=== PATIENT | female | born 1945 | race Caucasian/White ===

== ENCOUNTER 2017-06-09 10:32 | Observation (INO) ==
--- NOTE | 2017-06-09 10:35 | Emergency Department Note ---
ED Disposition Clinical Impression: COPD exacerbation Community acquired pneumonia Qualifiers: Laterality: left Lung location: lower lobe of lung Qualified Code(s): J18.1 - Lobar pneumonia, unspecified organism Disposition: Still a Patient Condition on Discharge: Fair - Critical Care Critical Care Time: No Attestation: On , the high probability of a clinically significant, sudden or life threatening deterioration of the following system(s) required my full and direct attention, intervention and personal management. The time I documented below is in addition to time spent performing reported procedures but includes the following listed in this critical care notation. Medical Decision Making - Luis Inquiry Pt receiving controlled substance: No Vital Signs: 06/09/17 10:33 06/09/17 10:47 Temperature Source Oral Pulse Rate 89 Pulse Rate [Right Brachial] 75 Respiratory Rate 18 Blood Pressure [Right Arm] 123/75 Blood Pressure Mean [Right Arm] 91 02 Sat by Pulse Oximetry 94 L Oxygen Delivery Method Room Air - Lab Data Lab Results 06/09/17 10:40: Specimen Source Left radial, O2 % 28, ABG pH 7.39, ABG pCO2 49.2 H, ABG pO2 76.6 L, ABG HCO3 29.0 H, ABG Total CO2 30.5 H, ABG O2 Saturation 95, ABG Base Excess 4.0 H, Travis Test Acceptable 06/09/17 10:47: WBC 14.0 H, RBC 3.78 L, Hgb 9.9 L, Hct 33.2 L, MCV 87.7, MCH 26.0 L, MCHC 29.7 L, RDW 16.3, Plt Count 335, MPV 7.8, Neut % (Auto) 74.1, Lymph % (Auto) 18.1, [place] % (Auto) 5.8, Eos % (Auto) 1.6, Baso % (Auto) 0.3, Neut # (Auto) 10.4 H, Lymph # (Auto) 2.5, [place] # (Auto) 0.8, Eos # (Auto) 0.2, Baso # (Auto) 0.0 06/09/17 10:47: Sodium 140, Potassium 3.5, Chloride 101, Carbon Dioxide 31, Anion Gap 11.5, BUN 13, Creatinine 0.93, Estimated Creat Clear 61, Estimated GFR 59, Est GFR ( Amer) 72, Glucose 140 H, Calcium 9.4, Total Bilirubin 0.2, AST 11 L, ALT 15, Alkaline Phosphatase 109, Total Creatine Kinase 23 L, CK- MB (CK-2) 0.7, CK-MB (CK-2) Rel Index 3.0, Troponin I < 0.02, Total Protein 6.6 , Albumin 2.3 L, Globulin 4.3 H, Albumin/Globulin Ratio 0.5 L 06/09/17 10:47: Lactic Acid 2.9 H Result diagrams: 06/09/17 10:47 06/09/17 10:47 Orders (Tests/Meds): ED MEDICATIONS Generic Name Dose Route Start Last Admin Trade Name Freq PRN Reason Stop Dose Admin Azithromycin 500 mg/ Sodium 250 mls @ 250 mls/hr 06/09/17 11:15 Chloride IV 06/23/17 11:14 Q24H AURE Protocol Ceftriaxone Sodium 1 gm/ 50 mls @ 100 mls/hr 06/09/17 11:15 06/09/17 11:49 Sodium Chloride IV 06/23/17 11:14 100 mls/hr Q24H AURE Administration Protocol Discontinued Medications Generic Name Dose Route Start Last Admin Trade Name Freq PRN Reason Stop Dose Admin Albuterol/Ipratropium 3 ml 06/09/17 10:45 06/09/17 10:46 Duoneb 3ml [facility] 06/09/17 10:46 3 ml ONCE ONE Administration Methylprednisolone Sodium Succinate 125 mg 06/09/17 10:43 06/09/17 11:05 Solu-Medrol 125mg/2ml Vial IV 06/09/17 10:44 125 mg ONCE ONE Administration Sodium Chloride 3 ml 06/09/17 10:45 Sodium Choride 3ml [facility] 06/09/17 10:46 ONCE ONE ORDERS Category Date Time Status Chest XR -- portable [XR chest portable] Stat Exams 06/09/17 10:45 Taken Lactic Acid Follow Up (4 hr) Stat Lab 06/09/17 11:29 Ordered Blood Culture Stat Micro 06/09/17 10:47 Received Sputum Culture & Gram Stain Stat Micro 06/09/17 10:45 Received - Radiology Data #1 Image(s): Chest Image Reviewed: Yes I reviewed the patient's radiology image Left basilar airspace disease - ECG Data Tracing #1 EKG interpreted by Veto Blood MD: Rhythm: sinus Rate: 90 [place]: normal Ectopy: none Conduction: normal ST Segment Changes: none T Wave Changes: none Q Waves: none No evidence of acute ischemia or injury Medical Decision Narrative: Patient lists allergy to penicillin. Reviewed previous records, she has been treated with Rocephin in the past. General Adult HPI - General Chief complaint: Shortness of Breath/Dyspnea Stated complaint: SHORTNESS OF AIR Time Seen by Provider: 06/09/17 11:00 - History of Present Illness HPI narrative: Ill for about 3 days. Has a bad cough producing dominantly very yellow sputum, one episode of brown sputum. No documented fever. Short of breath and increased wheezing. Rhinorrhea and nasal congestion. Very bad sore throat. Denies earache, but states "always has fluid in ears". Has severe COPD. On oxygen 2 L nasal cannula at home. Nebulizer treatments at home. Lives in [place] and was [place], here visiting family. Former smoker. - Related Data Allergies Allergy/AdvReac Type Severity Reaction Status Date / Time penicillin G Allergy Severe S-DIFF. Verified 06/09/17 10:42 BREATHING ciprofloxacin [From Cipro] Allergy Unknown UNKNOWN Verified 06/09/17 10:42 esomeprazole [From Nexium] Allergy Unknown UNKNOWN Verified 06/09/17 10:42 montelukast Allergy Unknown UNKNOWN Verified 06/09/17 10:42 oseltamivir Allergy Unknown Verified 06/09/17 10:42 Sulfa (Sulfonamide Allergy Unknown Verified 06/09/17 10:42 Antibiotics) ADHESIVES Allergy Unknown I-RASH Uncoded 02/05/17 15:14 [facility] History I have reviewed the patient's past medical history: Yes ROS Obtained: Yes All systems reviewed & no additional complaints - Constitutional Constitutional: Denies fever(s) - ENT Ears, Nose, Mouth, and Throat: Reports nasal congestion, Reports nasal discharge , Reports sore throat - Cardiovascular Cardiovascular: Reports chest pain (With breathing and coughing, posterior) - Respiratory Respiratory: Yes cough, Yes dyspnea, Yes excessive phlegm production, Yes pain on inspiration, Yes pain with cough, Yes wheezing - Gastrointestinal Gastrointestingal: Denies: diarrhea, vomiting Physical Exam - General General appearance: alert Comment: Very frequent cough, productive - Head Head exam: atraumatic, normocephalic, normal inspection - Eye Eye exam: Present: normal appearance, PERRL, EOMI - ENT ENT exam: Present: normal exam, mucous membranes moist, TM's normal bilaterally , normal external ear exam, other (mild erythema of pharynx) - Neck Neck exam: Present: normal inspection, full ROM, trachea midline. Absent: meningismus, lymphadenopathy - Chest Chest inspection: Present: normal inspection, symmetric chest wall rise. Absent : tenderness - Respiratory Respiratory exam: Present: wheezes - Cardiovascular Cardiovascular exam: Present: regular rate, normal rhythm. Absent: JVD - Abdominal Exam Abdominal exam: Present: soft, normal bowel sounds. Absent: distention, tenderness, guarding - Extremities Exam Extremities exam: Present: normal inspection, full ROM, normal capillary refill. Absent: calf tenderness - Back Exam Back exam: Present: normal inspection - Neurological Exam Neurological exam: Present: alert, oriented X3 - Psychiatric Psychiatric exam: Present: normal affect, normal mood - Skin Skin exam: Present: warm, dry, intact, normal color
[2017-06-09 10:42] LABS: ABG Oxygen Saturation 95 % (90-100); ABG PCO2 49.2 mmhg (35.0-45.0); ABG PH 7.39 mmol/L (7.35-7.45); ABG PO2 76.6 mmhg (80-100); ABG TCO2 30.5 mmhg (23-27)
[2017-06-09 10:43] LABS: Allen's Test ACCEPTABLE; Oxygen 28 %
[2017-06-09 11:11] LABS: Basophils % 0.3 % (0.1-2.0); Eosinophils # 0.2 K/mm3 (0.0-0.4); Eosinophils % 1.6 % (0.1-12.0); Hematocrit 33.2 % (37.0-47.0); Hemoglobin 9.9 g/dL (12.2-16.2); Lymphocytes # 2.5 K/mm3 (0.7-4.5); Lymphocytes % 18.1 K/mm3 (10-50); Mean Corpuscular HGB Conc 29.7 g/dL (31.8-35.4); Mean Corpuscular Volume 87.7 fl (81-99); Mean Platelet Volume 7.8 fl (7.4-10.4); Monocytes # 0.8 K/mm3 (0.1-1.0); Monocytes % 5.8 % (1.7-9.3); Neutrophils # 10.4 K/mm3 (1.8-7.8); Neutrophils % 74.1 % (37.0-80.0); Platelet Count 335 K/mm3 (142-424); Red Blood Count 3.78 M/mm3 (4.20-5.40); Red Cell Distribution Width 16.3 % (11.5-17.5)
[2017-06-09 11:45] LABS: Alanine Aminotransferase 15 U/L (12-78); Albumin Level 2.3 gm/dL (3.4-5.0); Albumin/Globulin Ratio 0.5 (1.1-1.8); Alkaline Phosphatase 109 U/L (46-116); Anion Gap 11.5 mEq/L (5-15); Aspartate Amino Transferase 11 U/L (15-37); Bilirubin,Total 0.2 mg/dL (0.2-1.0); Blood Urea Nitrogen 13 mg/dL (7-18); Calcium 9.4 mg/dL (8.5-10.1); Carbon Dioxide 31 mmol/L (21.0-32.0); Chloride 101 mmol/L (98-107); Creatine Kinase 23 U/L (26-192); Globulin 4.3 gm/dl (1.3-3.2); Glucose 140 mg/dL (74-106); Potassium 3.5 mmoL/L (3.5-5.1); Sodium 140 mmol/L (136-145); Total Protein,Serum 6.6 gm/dL (6.4-8.2)
--- NOTE | 2017-06-10 07:36 | Pharmacy Consult Notes ---
[facility] Pharmacy VTE Monitoring - Patient Demographics Admission date: 06/09/17 Report Date: 06/10/17 Time: 07:36 Allergies/Adverse Reactions: Patient Allergies penicillin G Allergy (Severe, Verified 06/09/17 10:42) S-DIFF. BREATHING ciprofloxacin [From Cipro] Allergy (Unknown, Verified 06/09/17 10:42) UNKNOWN esomeprazole [From Nexium] Allergy (Unknown, Verified 06/09/17 10:42) UNKNOWN montelukast Allergy (Unknown, Verified 06/09/17 10:42) UNKNOWN oseltamivir Allergy (Unknown, Verified 06/09/17 10:42) Sulfa (Sulfonamide Antibiotics) Allergy (Unknown, Verified 06/09/17 10:42) ADHESIVES Allergy (Unknown, Uncoded 02/05/17 15:14) I-RASH Height: 1.57 m Weight: 78.075 kg Patient Problems: Current Active Problems Community acquired pneumonia (Acute) COPD exacerbation (Acute) - VTE Risk Labs: VTE Related Lab Results Hgb 9.9 g/dL (12.2-16.2) L 06/09/17 10:47 Hct 33.2 % (37.0-47.0) L 06/09/17 10:47 Plt Count 335 K/mm3 (142-424) 06/09/17 10:47 BUN 13 mg/dL (7-18) 06/09/17 10:47 Creatinine 0.93 mg/dL (0.55-1.02) 06/09/17 10:47 Estimated Creat Clear 61 mL/min (0-300) 06/09/17 10:47 Was VTE Risk Assessment Performed: Yes VTE Risk Level: Low Risk - Prophylaxis VTE Prophylaxis Ordered?: Yes Types of VTE Prophylaxis: TEDS Knee High Location of Applied Device: Bilateral Lower Extremeties - VTE Diagnosis Confirmed Treatment or plan recommended: Continue Current Treatment
--- NOTE | 2017-06-10 08:22 | History & Physical Report ---
*Admission Date: 06/09/17 *Chief complaint: Cough and congestion *History of present illness: 72-year-old white female with end-stage emphysema as well as multiple other medical problems from cigarette smoking who has been in town with the sudden of her son. She became progressively more short of air and dyspneic, came to the emergency department yesterday. Chest x-ray findings were nonacute but had significant problems with dyspnea and evidence of a COPD exacerbation and was admitted to hospital. She states this morning that she feels somewhat better. Did have an episode yesterday of sweating and diaphoresis with some shortness of air but this has improved. [facility] History I have reviewed the patient's past medical history: Yes Medical History: Reports:: Arrhythmia, Diabetes Mellitus Type 2, Hypertension, MRSA Denies:: Cancer, Internal Pacemaker Other Medical History: Reports: Arthritis, Cataracts, Glaucoma, Radiation Therapy, Sinus Problems Other Surgeries: No: Pacemaker Amputation: No - *Social History Educational Level: Attended College Smoking Status: Former smoker Tobacco Type: cigarettes Alcohol Intake: never Occupational Status: retired Housing: house Household Members: children - Psychiatric History Expresses thoughts of harming self/others: None Suicide Plan Description: No Plan Review of Systems - Review of Systems Review of systems:: pertinent systems reviewed and negative unless documented below - Constitutional Reports anorexia, Reports body ache(s), Reports weakness - *Cardiovascular Reports shortness of breath, Reports shortness of breath with activity - *Respiratory Reports change in phlegm color, Reports chest congestion - *Gastrointestinal Reports abdominal pain - *Musculoskeletal Reports abnormal walking, Reports joint pain, Reports decreased muscle mass, Reports limited joint movement Meds Home Medications Medication Instructions Recorded Confirmed Type Apixaban [Eliquis] 5 mg PO BID 06/09/17 06/09/17 History Calcitonin,[place],Synthetic 3.7 ml NS HS 06/09/17 06/09/17 History [Miacalcin] Calcium Citrate/Vitamin D2 1 each PO BID 06/09/17 06/09/17 History [Alfie-Citrate Plus Vitamin D Tab] Docusate Sodium 100 mg PO BID 06/09/17 06/09/17 History Flecainide Acetate 100 mg PO Q12 06/09/17 06/09/17 History Fluticasone Propionate [Flonase 1 spray NS DAILY 06/09/17 06/09/17 History Allergy Relief NS] Fluticasone/Salmeterol [Advair 0 each INHALATION DAILY 06/09/17 06/09/17 History 500/50mcg diskus] Furosemide [Lasix 20mg tab] 20 mg PO DAILY 06/09/17 06/09/17 History Gabapentin [Gabapentin 300mg Cap] 300 mg PO BID 06/09/17 06/09/17 History Loratadine [Claritin] 10 mg PO DAILY 06/09/17 06/09/17 History Melatonin 5 mg PO HS 06/09/17 06/09/17 History Oxycodone HCl/Acetaminophen 1 tab PO Q4-6H PRN 06/09/17 06/09/17 History [Percocet 5/325mg tablet] Tiotropium [place] [Spiriva 1 puff IH DAILY 06/09/17 06/09/17 History 18mcg/puff inhaler] Tizanidine HCl [Zanaflex] 4 mg PO Q8HP PRN 06/09/17 06/09/17 History dilTIAZem HCl [Cartia Xt] 300 mg PO DAILY 06/09/17 06/09/17 History guaiFENesin [Mucinex 600mg tablet] 600 mg PO Q12 PRN 06/09/17 06/09/17 History predniSONE [Prednisone 10mg Tab 10 mg PO DAILY 06/09/17 06/09/17 History Dose-Pack] predniSONE [Prednisone 20mg 20 mg PO DAILY 06/09/17 06/09/17 History Tab] raNITIdine HCl [Ranitidine HCl] 75 mg PO BID 06/09/17 06/09/17 History Allergies Allergy/AdvReac Type Severity Reaction Status Date / Time penicillin G Allergy Severe S-DIFF. Verified 06/09/17 10:42 BREATHING ciprofloxacin [From Cipro] Allergy Unknown UNKNOWN Verified 06/09/17 10:42 esomeprazole [From Nexium] Allergy Unknown UNKNOWN Verified 06/09/17 10:42 montelukast Allergy Unknown UNKNOWN Verified 06/09/17 10:42 oseltamivir Allergy Unknown Verified 06/09/17 10:42 Sulfa (Sulfonamide Allergy Unknown Verified 06/09/17 10:42 Antibiotics) ADHESIVES Allergy Unknown I-RASH Uncoded 02/05/17 15:14 Exam Vital signs and Labs for Last 24 Hours: Temp Pulse Resp BP Pulse Ox 98.6 F 95 H 20 132/72 94 L 06/10/17 07:50 06/10/17 07:50 06/10/17 07:50 06/10/17 07:50 06/10/17 07:50 Laboratory Results - last 24 hr 06/09/17 10:40: Specimen Source Left radial, O2 % 28, ABG pH 7.39, ABG pCO2 49.2 H, ABG pO2 76.6 L, ABG HCO3 29.0 H, ABG Total CO2 30.5 H, ABG O2 Saturation 95, ABG Base Excess 4.0 H, Travis Test Acceptable 06/09/17 10:47: WBC 14.0 H, RBC 3.78 L, Hgb 9.9 L, Hct 33.2 L, MCV 87.7, MCH 26.0 L, MCHC 29.7 L, RDW 16.3, Plt Count 335, MPV 7.8, Neut % (Auto) 74.1, Lymph % (Auto) 18.1, [place] % (Auto) 5.8, Eos % (Auto) 1.6, Baso % (Auto) 0.3, Neut # (Auto) 10.4 H, Lymph # (Auto) 2.5, [place] # (Auto) 0.8, Eos # (Auto) 0.2, Baso # (Auto) 0.0 06/09/17 10:47: Sodium 140, Potassium 3.5, Chloride 101, Carbon Dioxide 31, Anion Gap 11.5, BUN 13, Creatinine 0.93, Estimated Creat Clear 61, Estimated GFR 59, Est GFR ( Amer) 72, Glucose 140 H, Calcium 9.4, Total Bilirubin 0.2, AST 11 L, ALT 15, Alkaline Phosphatase 109, Total Creatine Kinase 23 L, CK- MB (CK-2) 0.7, CK-MB (CK-2) Rel Index 3.0, Troponin I < 0.02, Total Protein 6.6 , Albumin 2.3 L, Globulin 4.3 H, Albumin/Globulin Ratio 0.5 L 06/09/17 10:47: Lactic Acid 2.9 H 06/09/17 16:39: POC Glucose 343 H* 06/09/17 21:08: POC Glucose 218 H 06/10/17 06:04: POC Glucose 224 H I & O for Last 24 hours: Intake & Output 06/07/17 06/08/17 06/09/17 06/10/17 11:59 11:59 11:59 11:59 Intake Total 1110 / 1110 Output Total 100 / 100 Balance 1010 / 1010 Weight 165 lb 172 lb 2 oz Microbiology Reports for the Last 24 Hours: Microbiology 06/09/17 10:45 Sputum - Expectorated Sputum Gram Stain - Final 06/09/17 10:45 Sputum - Expectorated Sputum Sputum Culture - Preliminary Narrative: Patient is awake, alert, oriented 3. Wearing oxygen, poor air movement in her lungs but at baseline. Some rhonchi. No crackles. No wheezing. Heart rate regular. Kyphosis and significant joint disease noted. Heart rate regular with occasional ectopic beats. Abdomen soft and nontender. H&P: Result - Labs Labs: Short CBC 06/09/17 Range/Units 10:47 WBC 14.0 H (4.8-10.8) K/mm3 Hgb 9.9 L (12.2-16.2) g/dL Hct 33.2 L (37.0-47.0) % Plt Count 335 (142-424) K/mm3 BMP 06/09/17 10:47 Sodium 140 Potassium 3.5 Chloride 101 Carbon Dioxide 31 BUN 13 Creatinine 0.93 Glucose 140 H Calcium 9.4 Cardiac Enzymes 06/09/17 Range/Units 10:47 Total Creatine Kinase 23 L (26-192) U/L CK-MB (CK-2) 0.7 (0.0-3.6) ng/ml Troponin I < 0.02 (0.00-0.06) ng/ml Liver Function 06/09/17 Range/Units 10:47 Total Bilirubin 0.2 (0.2-1.0) mg/dL AST 11 L (15-37) U/L ALT 15 (12-78) U/L Alkaline Phosphatase 109 (46-116) U/L Albumin 2.3 L (3.4-5.0) gm/dL Assessment and Plan (1) COPD exacerbation Current visit: Yes Status: Acute Category: Medical Code(s): J44.1 - Chronic obstructive pulmonary disease with (acute) exacerbation (2) Community acquired pneumonia Current visit: Yes Status: Acute Qualifiers: Laterality: left Lung location: lower lobe of lung Qualified Code(s): J18.1 - Lobar pneumonia, unspecified organism Category: Medical Code(s): J18.9 - Pneumonia, unspecified organism - Assessment and plan all Dx Assessment and Plan for all problems:: Continue observation for COPD exacerbation. Continue antibiotics and steroids. Check EKG given her history of A. fib.
[2017-06-10 12:45] LABS: Creatine Kinase 28 U/L (26-192)
--- NOTE | 2017-06-11 09:18 | Progress Note ---
Internal Medicine - PN: Subj *Date: 06/11/17 *Time: 07:30 Interval history: Patient reports back pain which is a chronic issue for her. Shortness of breath has improved "a little." Alert and oriented x3. Rate and rhythm regular. Lung sounds with rhonchi/ wheezes anteriorly. Abdomen soft and nontender Exam Vital signs and Labs for Last 24 Hours: Temp Pulse Resp BP Pulse Ox 98.2 F 93 H 20 177/71 93 L 06/11/17 07:17 06/11/17 07:17 06/11/17 07:17 06/11/17 07:17 06/11/17 07:17 Laboratory Results - last 24 hr 06/10/17 11:55: POC Glucose 352 H* 06/10/17 12:06: Total Creatine Kinase 28, CK-MB (CK-2) 0.7, CK-MB (CK-2) Rel Index 2.5, Troponin I < 0.02 06/10/17 16:55: POC Glucose 227 H 06/10/17 20:33: POC Glucose 232 H 06/11/17 06:25: POC Glucose 227 H I & O for Last 24 hours: Intake & Output 06/08/17 06/09/17 06/10/17 06/11/17 11:59 11:59 11:59 11:59 Intake Total 1110 / 1110 1280 / 1280 Output Total 100 / 100 200 / 200 Balance 1010 / 1010 1080 / 1080 Weight 165 lb 172 lb 2 oz 172 lb 2.014 oz Microbiology Reports for the Last 24 Hours: Microbiology 06/09/17 10:45 Sputum - Expectorated Sputum Gram Stain - Final 06/09/17 10:45 Sputum - Expectorated Sputum Sputum Culture - Preliminary 06/09/17 10:47 Blood Blood Culture - Preliminary NO GROWTH AFTER 24 HOURS 06/09/17 10:47 Blood Blood Culture - Preliminary NO GROWTH AFTER 24 HOURS Assessment and Plan (1) COPD exacerbation Current visit: Yes Status: Acute Category: Medical Code(s): J44.1 - Chronic obstructive pulmonary disease with (acute) exacerbation (2) Community acquired pneumonia Current visit: Yes Status: Acute Qualifiers: Laterality: left Lung location: lower lobe of lung Qualified Code(s): J18.1 - Lobar pneumonia, unspecified organism Category: Medical Code(s): J18.9 - Pneumonia, unspecified organism - Assessment and plan all Dx Assessment and Plan for all problems:: Continue IV antibiotics and Duonebs. Will schedule tylenol for back pain.
--- NOTE | 2017-06-12 08:07 | Discharge Summary ---
General - General Admission date:: 06/09/17 Discharge date: 06/12/17 HPI HPI: 72-year-old white female with end-stage emphysema as well as multiple other medical problems from cigarette smoking who has been in town with the sudden of her son. She became progressively more short of air and dyspneic, came to the emergency department yesterday. Chest x-ray findings were nonacute but had significant problems with dyspnea and evidence of a COPD exacerbation and was admitted to hospital. She states this morning that she feels somewhat better. Did have an episode yesterday of sweating and diaphoresis with some shortness of air but this has improved. Hospital Course Hospital Course: Patient was admitted with COPD exacerbation and placed on high IV steroids antibiotics. She was found to have no infiltrate over baseline on chest x-ray, had no issues with leukocytosis baseline, and had negative blood cultures and no growth on sputum culture. She was at her baseline throughout her hospital stay with wheezing, and significant subjective dyspnea. She complains of "stopping breathing" but this simply is vasovagal responses to her coughing. On examination she has a habit of making herself have audible rhonchi when she knows she has been examined and continues to complain of her lower functional status and "no one will take care of me" and ask for more days in the hospital. We had a long discussion today that she was at her baseline, she had a COPD exacerbation that had been adequately treated and for to stay in the hospital longer would actually be detrimental to her health. I will discharge her today on antibiotics and steroids. Her other issue is her wish for opioid pain medications. The patient has moved to [place] and is unavailable for appropriate narcotic monitoring I informed her today that I would no longer prescribe controlled substances for her and that she needed to find a physician in [place] to deal with this. Objective Vital signs: Temp Pulse Resp BP Pulse Ox 98.4 F 89 20 119/66 95 06/12/17 07:41 06/12/17 07:41 06/12/17 07:41 06/12/17 07:41 06/12/17 07:41 Narrative: Patient is frail-appearing and appears older than her stated age, at baseline. She is wearing oxygen, again at baseline. Her lungs have expiratory what rhonchi with minimal end-expiratory wheezes but she has symmetric air entry. She is in no distress, is able to finish sentences when talking, and has eaten well for breakfast. She is at her baseline. (Again, I informed her this did not mean that she was not sick but simply did not require ongoing hospitalization.) Results Labs on day of discharge: Labs from last 24 hours 06/12/17 06/11/17 06/11/17 06:05 20:15 16:49 POC Glucose 327 H* 260 H 301 H* 06/11/17 11:44 POC Glucose 284 H Preliminary micro results at discharge 06/09/17 10:45 Sputum Culture - Preliminary Sputum - Expectorated Sputum 06/09/17 10:47 Blood Culture - Preliminary Blood NO GROWTH AFTER 48 HOURS 06/09/17 10:47 Blood Culture - Preliminary Blood NO GROWTH AFTER 48 HOURS DS: Diagnosis - Discharge Diagnosis (1) COPD exacerbation Status: Acute (2) Community acquired pneumonia Status: Ruled-out Discharge Plan - Patient Discharge Instructions ACTIVITY: Continue current activity DIET: continue same diet - Follow up Plan Unknown provider or service follow up:: 06/12/17 08:08 New Physician in [place] Disposition: Home, Self-Prison Medications: Home Medications Medication Instructions Recorded Confirmed Type Apixaban [Eliquis] 5 mg PO BID 06/09/17 06/09/17 History Calcitonin,[place],Synthetic 3.7 ml NS HS 06/09/17 06/09/17 History [Miacalcin] Calcium Citrate/Vitamin D2 1 each PO BID 06/09/17 06/09/17 History [Alfie-Citrate Plus Vitamin D Tab] Docusate Sodium 100 mg PO BID 06/09/17 06/09/17 History Flecainide Acetate 100 mg PO Q12 06/09/17 06/09/17 History Fluticasone Propionate [Flonase 1 spray NS DAILY 06/09/17 06/09/17 History Allergy Relief NS] Furosemide [Lasix 20mg tab] 20 mg PO DAILY 06/09/17 06/09/17 History Gabapentin [Gabapentin 300mg Cap] 300 mg PO BID 06/09/17 06/09/17 History Loratadine [Claritin] 10 mg PO DAILY 06/09/17 06/09/17 History Melatonin 5 mg PO HS 06/09/17 06/10/17 History Oxycodone HCl/Acetaminophen 1 tab PO Q4-6H PRN 06/09/17 06/09/17 History [Percocet 5/325mg tablet] Tiotropium [place] [Spiriva 1 puff IH DAILY 06/09/17 06/09/17 History 18mcg/puff inhaler] Tizanidine HCl [Zanaflex] 4 mg PO Q8HP PRN 06/09/17 06/09/17 History dilTIAZem HCl [Cartia Xt] 300 mg PO DAILY 06/09/17 06/09/17 History guaiFENesin [Mucinex 600mg tablet] 600 mg PO Q12 PRN 06/09/17 06/09/17 History predniSONE [Prednisone 10mg Tab 10 mg PO DAILY 06/09/17 06/09/17 History Dose-Pack] predniSONE [Prednisone 20mg 20 mg PO DAILY 06/09/17 06/09/17 History Tab] raNITIdine HCl [Ranitidine HCl] 75 mg PO BID 06/09/17 06/09/17 History Fluticasone/Salmeterol [Advair 1 puffs IH DAILY 06/10/17 06/10/17 History 250/50 diskus] Tiotropium [place] [Spiriva 1 puff IH DAILY 06/10/17 06/10/17 History Respimat] Prescriptions/Medication Reconciliation: New Azithromycin [Zithromax 250mg tab] 250 mg PO DIRECTED #6 tab Cefdinir [Omnicef 300mg Capsule] 300 mg PO BID #20 cap predniSONE [Prednisone 20mg Tab] 20 mg PO BID #28 tab Continue Apixaban [Eliquis] 5 mg PO BID Fluticasone Propionate [Flonase Allergy Relief NS] 1 spray NS DAILY Docusate Sodium 100 mg PO BID Loratadine [Claritin] 10 mg PO DAILY Tizanidine HCl [Zanaflex] 4 mg PO Q8HP PRN PRN Reason: Muscle Pain Flecainide Acetate 100 mg PO Q12 dilTIAZem HCl [Cartia Xt] 300 mg PO DAILY Gabapentin [Gabapentin 300mg Cap] 300 mg PO BID Calcium Citrate/Vitamin D2 [Alfie-Citrate Plus Vitamin D Tab] 1 each PO BID Calcitonin,[place],Synthetic [Miacalcin] 3.7 ml NS HS Melatonin 5 mg PO HS guaiFENesin [Mucinex 600mg tablet] 600 mg PO Q12 PRN PRN Reason: Congestion Tiotropium [place] [Spiriva Respimat] 1 puff IH DAILY Furosemide [Lasix 20mg tab] 20 mg PO DAILY raNITIdine HCl [Ranitidine HCl] 75 mg PO BID Fluticasone/Salmeterol [Advair 250/50 diskus] 1 puffs IH DAILY Discontinued Tiotropium [place] [Spiriva 18mcg/puff inhaler] 1 puff IH DAILY predniSONE [Prednisone 20mg Tab] 20 mg PO DAILY predniSONE [Prednisone 10mg Tab Dose-Pack] 10 mg PO DAILY Oxycodone HCl/Acetaminophen [Percocet 5/325mg tablet] 1 tab PO Q4-6H PRN PRN Reason: PAIN
== END 2017-06-12 13:53 | disposition home or self-care (01) ==
LOC: 2ND 10:32 → ER 10:32 → 2ND 14:20
PROVIDERS: ADMIT Emergency Medicine; ATTEND Internal Medicine Adolescent Medicine

== ENCOUNTER 2018-10-29 17:33 | Observation (INO) ==
--- NOTE | 2018-10-29 18:33 | Emergency Department Note ---
ED Disposition Clinical Impression: COPD exacerbation Disposition: Admitted as Observation Condition on Discharge: Fair Referrals: [facility] Rg [Primary Care Provider] - - Critical Care Critical Care Time: No Attestation: On 10/29/18, the high probability of a clinically significant, sudden or life th reatening deterioration of the following system(s) required my full and direct attention, intervention and personal management. The time I documented below is in addition to time spent performing reported procedures but includes the following listed in this critical care notation. Medical Decision Making - Luis Inquiry Pt receiving controlled substance: No Vital Signs: 10/29/18 17:40 10/29/18 17:55 10/29/18 18:07 Temperature 98.0 F Temperature Source Oral Pulse Rate 97 H Pulse Rate [Right Radial] 90 Respiratory Rate 24 Blood Pressure [Right Arm] 132/78 Blood Pressure Mean [Right Arm] 96 Blood Pressure Source [Right Arm] Automatic Cuff Blood Pressure Position [Right Arm] Sitting 02 Sat by Pulse Oximetry 93 L 93 L Oxygen Delivery Method Nasal Cannula Nasal Cannula Oxygen Flow Rate (LPM) 2 2 - Lab Data Lab Results 10/29/18 18:55: WBC 11.5 H, RBC 3.84 L, Hgb 9.8 L, Hct 32.4 L, MCV 84.5, MCH 25.6 L, MCHC 30.3 L, RDW 16.9, Plt Count 276, MPV 7.2 L, Neut % (Auto) 78.5, Lymph % (Auto) 14.2, [place] % (Auto) 6.4, Eos % (Auto) 0.6, Baso % (Auto) 0.3, Neut # (Auto) 9.0 H, Lymph # (Auto) 1.6, [place] # (Auto) 0.7, Eos # (Auto) 0.1, [place] # (Auto) 0.0 10/29/18 18:55: Sodium 140, Potassium 4.0, Chloride 103, Carbon Dioxide 34 H, Anion Gap 7.0, BUN 15, Creatinine 0.89, Estimated Creat Clear 56, Estimated GFR 62, Est GFR ( Amer) 75, Glucose 137 H, Calcium 9.1, Total Bilirubin 0.3, AST 14 L, ALT 27, Alkaline Phosphatase 103, Troponin I < 0.02, Total Protein 6.3 L, Albumin 2.8 L, Globulin 3.5 H, Albumin/Globulin Ratio 0.8 L 10/29/18 18:55: Lactate 0.8 Result diagrams: 10/29/18 18:55 10/29/18 18:55 Orders (Tests/Meds): ED MEDICATIONS Discontinued Medications Generic Name Dose Route Start Last Admin Trade Name Sara PRN Reason Stop Dose Admin Acetaminophen 1,000 mg 10/29/18 19:24 10/29/18 19:25 Tylenol 500mg Tablet PO 10/29/18 19:25 1,000 mg ONCE ONE Administration Albuterol/Ipratropium 3 ml 10/29/18 17:55 10/29/18 18:06 Duoneb 3ml Neb IH 10/29/18 17:56 3 ml ONCE ONE Administration Methylprednisolone Sodium Succinate 125 mg 10/29/18 19:10 10/29/18 19:25 Solu-Medrol 125mg/2ml Vial IV 10/29/18 19:11 125 mg ONCE ONE Administration ORDERS Category Date Time Status XR chest portable Stat Exams 10/29/18 18:06 Taken Blood Culture Stat Micro 10/29/18 18:06 Received - Radiology Data #1 Image(s): Chest Image Reviewed: Yes I reviewed the patient's radiology image COPD. Questionable mild airspace disease left base, atelectasis vs minimal infiltrate. - ECG Data Tracing #1 EKG interpreted by Veto Blood MD: Rhythm: sinus Rate: 82 [place]: Left Ectopy: none Conduction: normal ST Segment Changes: none T Wave Changes: none Q Waves: none Poor R wave progression Low voltage QRS Baseline artifact present, but I consider the EKG adequate for accurate interpretation. - Physician Consults Physician Consulted: Marco Time: 19:53 Reason -: Admission Comment/Response: Agrees to admit the patient to the hospital. We discussed the patient's clinical information, including history, exam, laboratory and radiology results and ED course. Per hospital procedure, I will write temporary bridge inpatient orders on the patient. Specific orders requested by the admitting physician: Zithromax, nebulizers, steroids. Discussed with patient. She says she has been on Zithromax so much that it does not work. She prefers Levaquin, which she felt was working. Noted allergy to Cipro, but she says she can take Levaquin without problems. - Reevaluation(s) Time: 19:54 Reevaluation #1: Patient is significantly improved. Discussed and disposition. She has no ride and would have to drive back to [facility], where she lives, tonight by herself. She does not have any of her medications with her. Daughter says that she could come back with a shuttle driver in the morning to drive her home. Patient would prefer to stay overnight in the hospital for treatment and observation. General Adult HPI - General Chief complaint: Shortness of Breath/Dyspnea Stated complaint: SOB and AFif Time Seen by Provider: 10/29/18 18:32 Mode of Arrival: Wheelchair Limitations: No Limitations Description of Symptoms (Recalled from ER Triage Doc. by RN): pt c/o increased SOA, pt reports has been feeling bad all day, states she went grocery shopping and became more SOA than her normal, states when she checked her SaO2 it was 71% on 2L per NC. Pt reports she finished Levaquin 500 mg PO 10 day supply- 2 days ago. Pt reports productive cough. Pt reports GONZALEZ. Pt states she is home O2 dependent at 2L per NC - History of Present Illness HPI narrative: Complains of shortness of breath. She has severe COPD. Oxygen dependent. Steroid-dependent. She is visiting here from [facility], where she lives. She has primary care doctors there but also her primary care doctor in [facility]. She does not see a cook box filler. She says that she was feeling short of breath today, attributed it to the heat outside, took a breathing treatment and then went shopping which made her much more short of breath. She got back into the car after shopping and turned the air conditioner on. Tried pursed lip breathing. Took nebulizer treatments. No thing seemed to help. Pulse ox was in the 70s. She therefore climbed to the emergency room. Now that she is here in the cooler she feels much better. Says that her lungs hurt in her back. She says this is from the heavy breathing. She developed a headache from low oxygen. Recently treated with Levaquin for respiratory infection. Currently says that she is on 15 mg of prednisone daily, she never really gets below 10 mg daily. - Related Data Home Medications Medication Instructions Recorded Confirmed Apixaban [Eliquis 5mg tab] 2.5 mg PO BID 06/09/17 10/29/18 Calcitonin,[place],Synthetic 3.7 ml NS HS 06/09/17 06/09/17 [Miacalcin] Calcium Citrate/Vitamin D2 1 each PO BID 06/09/17 06/09/17 [[place]fie-Citrate Plus Vitamin D Tab] Docusate Sodium 100 mg PO BID 06/09/17 06/09/17 Flecainide Acetate 100 mg PO Q12 06/09/17 10/29/18 Fluticasone Propionate [Flonase 1 spray NS DAILY 06/09/17 06/09/17 Allergy Relief NS] Furosemide [Lasix 20mg tablet] 20 mg PO DAILY 06/09/17 06/09/17 Loratadine [Claritin] 10 mg PO DAILY 06/09/17 10/29/18 Melatonin 5 mg PO HS 06/09/17 06/10/17 Tizanidine HCl [Zanaflex 4mg 4 mg PO Q8HP PRN 06/09/17 10/29/18 tab] dilTIAZem HCl [Cartia Xt] 300 mg PO DAILY 06/09/17 06/09/17 guaiFENesin [Mucinex 600mg tablet] 600 mg PO Q12 PRN 06/09/17 10/29/18 raNITIdine HCl [Ranitidine HCl] 75 mg PO BID 06/09/17 10/29/18 Previous Rx's Medication Instructions Recorded predniSONE [Prednisone 10mg Tab 10 mg PO DAILY #30 pack 06/30/17 Dose-Pack] Allergies Allergy/AdvReac Type Severity Reaction Status Date / Time penicillin G Allergy Severe S-DIFF. Verified 06/09/17 10:42 BREATHING ciprofloxacin [From Cipro] Allergy Unknown UNKNOWN Verified 06/09/17 10:42 esomeprazole [From Nexium] Allergy Unknown UNKNOWN Verified 06/09/17 10:42 montelukast Allergy Unknown UNKNOWN Verified 06/09/17 10:42 oseltamivir Allergy Unknown Verified 06/09/17 10:42 Sulfa (Sulfonamide Allergy Unknown Verified 06/09/17 10:42 Antibiotics) ADHESIVES Allergy Unknown I-RASH Uncoded 02/05/17 15:14 H History - Hepatitis A Screen Drug use history?: No High risk sexual behaviors?: No History of sexually transmitted infection?: No Currently employed?: No Childcare worker?: No Do you have indoor plumbing?: Yes Do you have electricity?: Yes Attestation statement:: This patient has been screened for Hepatitis A risk factors. I have reviewed the patient's past medical history: Yes Medical History: Reports:: Arrhythmia, Diabetes Mellitus Type 2, Hypertension, MRSA Denies:: Cancer, Diabetes Mellitus Type 1, Internal Pacemaker Other Medical History: Reports: Arthritis, Cataracts, Glaucoma, Radiation Therapy, Sinus Problems Other Surgeries: No: Pacemaker Amputation: No - Social History Smoking Status: Former smoker Tobacco Type: cigarettes Alcohol Intake: never Occupational Status: retired Housing: house Household Members: children ROS Obtained: Yes All systems reviewed & no additional complaints - Constitutional Constitutional: Reports fever(s) (States recent subjective fever, fever blister) - Cardiovascular Cardiovascular: Reports chest pain (Posterior in lungs) - Respiratory Respiratory: Yes cough, Yes dyspnea, Yes excessive phlegm production - Gastrointestinal Gastrointestingal: Reports: nausea, vomiting. Denies: abdominal pain - Neurologic Neurologic: Reports headache(s) Physical Exam - General General appearance: alert, in no apparent distress Comment: O2 sat 96-97% on 2L NC during my exam. - Head Head exam: atraumatic, normocephalic - Eye Eye exam: Present: normal appearance, EOMI - ENT ENT exam: Present: mucous membranes moist - Neck Neck exam: Present: normal inspection, trachea midline - Chest Chest inspection: Present: normal inspection, symmetric chest wall rise - Respiratory Respiratory exam: Present: other (mild decreased BS bilaterally). Absent: respiratory distress - Cardiovascular Cardiovascular exam: Present: regular rate, normal rhythm, normal heart sounds - Abdominal Exam Abdominal exam: Present: soft, normal bowel sounds. Absent: distention, tenderness - External exam: Present: normal external exam - Extremities Exam Extremities exam: Present: normal inspection, full ROM, other (Ecchymosis from left knee down the left ankle due to recent injury) - Neurological Exam Neurological exam: Present: alert, oriented X3 - Psychiatric Psychiatric exam: Present: normal affect, normal mood - Skin Skin exam: Present: warm, dry
[2018-10-29 19:07] LABS: Basophils % 0.3 % (0.1-2.0); Eosinophils # 0.1 K/mm3 (0.0-0.4); Eosinophils % 0.6 % (0.1-12.0); Hematocrit 32.4 % (37.0-47.0); Hemoglobin 9.8 g/dL (12.2-16.2); Lymphocytes # 1.6 K/mm3 (0.7-4.5); Lymphocytes % 14.2 % (10-50); Mean Corpuscular HGB Conc 30.3 g/dL (31.8-35.4); Mean Corpuscular Volume 84.5 fl (81-99); Mean Platelet Volume 7.2 fl (7.4-10.4); Monocytes # 0.7 K/mm3 (0.1-1.0); Monocytes % 6.4 % (1.7-9.3); Neutrophils % 78.5 % (37.0-80.0); Platelet Count 276 K/mm3 (142-424); Red Blood Count 3.84 M/mm3 (4.20-5.40); Red Cell Distribution Width 16.9 % (11.5-17.5); White Blood Count 11.5 K/mm3 (4.8-10.8)
[2018-10-29 19:24] LABS: Alanine Aminotransferase 27 U/L (12-78); Albumin Level 2.8 gm/dL (3.4-5.0); Albumin/Globulin Ratio 0.8 (1.1-1.8); Alkaline Phosphatase 103 U/L (46-116); Aspartate Amino Transferase 14 U/L (15-37); Bilirubin,Total 0.3 mg/dL (0.2-1.0); Blood Urea Nitrogen 15 mg/dL (7-18); Calcium 9.1 mg/dL (8.5-10.1); Carbon Dioxide 34 mmol/L (21.0-32.0); Chloride 103 mmol/L (98-107); Globulin 3.5 gm/dl (1.3-3.2); Glucose 137 mg/dL (74-106); Sodium 140 mmol/L (136-145); Total Protein,Serum 6.3 gm/dL (6.4-8.2)
--- NOTE | 2018-10-30 07:22 | Pharmacy Consult Notes ---
[facility] Pharmacy VTE Monitoring - Patient Demographics Admission date: 10/29/18 Report Date: 10/30/18 Time: 07:22 Allergies/Adverse Reactions: Patient Allergies penicillin G Allergy (Severe, Verified 06/09/17 10:42) S-DIFF. BREATHING ciprofloxacin [From Cipro] Allergy (Unknown, Verified 06/09/17 10:42) UNKNOWN esomeprazole [From Nexium] Allergy (Unknown, Verified 06/09/17 10:42) UNKNOWN montelukast Allergy (Unknown, Verified 06/09/17 10:42) UNKNOWN oseltamivir Allergy (Unknown, Verified 06/09/17 10:42) Sulfa (Sulfonamide Antibiotics) Allergy (Unknown, Verified 06/09/17 10:42) ADHESIVES Allergy (Unknown, Uncoded 02/05/17 15:14) I-RASH Height: 1.57 m Weight: 72.688 kg Patient Problems: Current Active Problems COPD exacerbation (Acute) - VTE Risk Labs: VTE Related Lab Results Hgb 9.8 g/dL (12.2-16.2) L 10/29/18 18:55 Hct 32.4 % (37.0-47.0) L 10/29/18 18:55 Plt Count 276 K/mm3 (142-424) 10/29/18 18:55 BUN 15 mg/dL (7-18) 10/29/18 18:55 Creatinine 0.89 mg/dL (0.55-1.02) 10/29/18 18:55 Estimated Creat Clear 56 mL/min (50-200) 10/29/18 18:55 Was VTE Risk Assessment Performed: Yes VTE Score: 11 VTE Risk Level: Moderate Risk Clinical Trial Participant: No - Prophylaxis VTE Prophylaxis Ordered?: Yes Types of VTE Prophylaxis: TEDS Knee High Location of Applied Device: Refused
--- NOTE | 2018-10-30 08:55 | History & Physical Report ---
*Admission Date: 10/29/18 <Sisi Dobson - 10/30/18 08:55> *Chief complaint: shortness of breath <Sisi Dobson - 10/30/18 08:55> *History of present illness: Ms. Pop is a 73-year-old female who is a patient of Dr. Rg. She was visiting here from [facility], where she lives. She has numerous medical conditions and has been hospitalized many times at various hospitals in [place] as well as [place]. She has severe COPD and is oxygen and steroid-dependent. She states she was recently hospitalized due to difficulty breathing and was placed on Levaquin. She states she was sent home on oral Levaquin and took this for 10 days and was feeling much better. She ran out of the Levaquin 2 days ago and began feeling short of breath and coughing again. She states she took a breathing treatment and went shopping, which made her more short of breath. She got back into her car after shopping and turned on the air conditioner and took another nebulizer treatment. She states she checked her oxygen and it was down to 71. She states she could not get her oxygen level to increase, and therefore presented to the emergency room. She was admitted for a COPD exacerbation. The patient states she feels a little bit better this morning after being started on Levaquin, steroids, and nebs. She is requesting her home medications. She also says she has multiple medication allergies but does not have a list with her at this time. Of note, she also fell a few days ago in her home injuring her bilateral lower legs. She has not had x-rays. <Sisi Dobson - 10/30/18 09:16> [facility] History I have reviewed the patient's past medical history: Yes <Sisi Dobson 10/30/18 08:55> Medical History: Reports:: Arrhythmia, Atrial Fibrillation, Chronic Obstructive Pulmonary Disease (COPD), Coronary Artery Disease, Diabetes Mellitus Type 2, Hyperlipidemia, Hypertension, Lung Disease, MRSA, Urinary Tract Infection Denies:: Cancer, Cerebrovascular Accident, Diabetes Mellitus Type 1, Internal Pacemaker, Myocardial Infarction <Sisi Dobson 10/30/18 09:16> *Have you ever received a pneumonia vaccine?: No <Sisi Dobson 10/30/18 08:55> *Have you received a flu vaccine this season?: No <Sisi Dobson 10/30/18 08:55> Other Medical History: Reports: Arthritis, Cataracts, Glaucoma, Radiation Therapy, Sinus Problems <Sisi Dobson 10/30/18 08:55> Laterality Cases: Bilateral: Cataract, Other <Sisi Dobson 10/30/18 08:55> Other Surgeries: Yes: Appendectomy, Cholecystectomy, Colonoscopy, Hysterectomy- Partial, Other (SURGERY ON BACK). No: Pacemaker <Sisi Dobson 10/30/18 09:16> Amputation: No <Sisi Dobson 10/30/18 08:55> - *Social History Educational Level: Attended College <Sisi Dobson 10/30/18 08:55> Smoking Status: Former smoker <Sisi Dobson 10/30/18 08:55> Tobacco Type: cigarettes <Sisi Dobson 10/30/18 08:55> Alcohol Intake: never <Sisi Dobson 10/30/18 08:55> *Occupational Status:: retired <Sisi Dobson 10/30/18 08:55> Housing: house <Sisi Dobson 10/30/18 08:55> Household Members: children <Sisi Dobson 10/30/18 08:55> *Travel in the last 8 weeks: None <Sisi Dobson 10/30/18 08:55> Family Hx:: Cancer, Coronary Artery Disease, Diabetes, Heart Attack <Sisi Dobson 10/30/18 09:16> Review of Systems - Constitutional Reports chills, Reports fever(s), Reports weakness <Sisi Dobson 10/30/18 09:16> - Eyes Denies blurry vision, Denies double vision <Sisi Dobson 10/30/18 09:16> - ENT Reports nasal congestion, Denies sore throat <Sisi Dobson 10/30/18 09:16> - *Cardiovascular Reports chest pain, Reports shortness of breath, Reports shortness of breath with activity <Sisi Dobson 10/30/18 09:16> - *Respiratory Reports chest congestion, Reports cough, Reports shortness of breath, Reports excessive phlegm production, Reports wheezing <Sisi Dobson - 10/30/18 09:16> - *Gastrointestinal Reports constipation, Denies abdominal pain, Denies loose stools, Denies nausea, Denies vomiting <Sisi Dobson 10/30/18 09:16> - *Genitourinary Reports painful urination, Denies difficulty urinating <Sisi Dobson 10/30/18 09:16> - *Musculoskeletal Reports joint pain (bilateral lower legs after fall), Reports back pain (chronic) <Sisi Dobson 10/30/18 09:16> - *Neurologic Reports headache(s), Reports dizziness, Reports weakness <Sisi Dobson 10/30/18 09:16> Meds Home Medications Medication Instructions Recorded Confirmed Type Apixaban [Eliquis 5mg tab] 2.5 mg PO BID 06/09/17 10/29/18 History Calcitonin,[place],Synthetic 3.7 ml NS HS 06/09/17 10/29/18 History [Miacalcin] Calcium Citrate/Vitamin D2 1 each PO BID 06/09/17 10/29/18 History [Alfie-Citrate Plus Vitamin D Tab] Docusate Sodium 100 mg PO BID 06/09/17 10/29/18 History Flecainide Acetate 100 mg PO Q12 06/09/17 10/29/18 History Fluticasone Propionate [Flonase 1 spray NS DAILY 06/09/17 10/29/18 History Allergy Relief NS] Furosemide [Lasix 20mg tablet] 20 mg PO DAILY 06/09/17 10/29/18 History Loratadine [Claritin] 10 mg PO DAILY 06/09/17 10/29/18 History Melatonin 5 mg PO HS 06/09/17 10/29/18 History Tizanidine HCl [Zanaflex 4mg 4 mg PO Q8HP PRN 06/09/17 10/29/18 History tab] dilTIAZem HCl [Cartia Xt] 300 mg PO DAILY 06/09/17 10/29/18 History guaiFENesin [Mucinex 600mg tablet] 1,200 mg PO Q12 PRN 06/09/17 10/29/18 History raNITIdine HCl [Ranitidine HCl] 75 mg PO BID 06/09/17 10/29/18 History predniSONE [Prednisone 10mg Tab 10 mg PO DAILY #30 pack 06/30/17 10/29/18 Rx Dose-Pack] <Nuvia Lara - 10/30/18 11:02> Allergies Allergy/AdvReac Type Severity Reaction Status Date / Time penicillin G Allergy Severe S-DIFF. Verified 06/09/17 10:42 BREATHING adhesive Allergy Unknown Rash Verified 10/30/18 08:49 ciprofloxacin [From Cipro] Allergy Unknown UNKNOWN Verified 06/09/17 10:42 esomeprazole [From Nexium] Allergy Unknown UNKNOWN Verified 06/09/17 10:42 montelukast Allergy Unknown UNKNOWN Verified 06/09/17 10:42 oseltamivir Allergy Unknown Unknown Verified 10/30/18 08:49 allergy reaction Sulfa (Sulfonamide Allergy Unknown Unknown Verified 10/30/18 08:49 Antibiotics) allergy reaction <Nuvia Lara - 10/30/18 11:02> Exam Vital signs and Labs for Last 24 Hours: Temp Pulse Resp BP Pulse Ox 98.2 F 91 H 22 129/73 95 10/30/18 08:00 10/30/18 08:00 10/30/18 08:00 10/30/18 08:00 10/30/18 08:00 Laboratory Results - last 24 hr 10/29/18 18:55: WBC 11.5 H, RBC 3.84 L, Hgb 9.8 L, Hct 32.4 L, MCV 84.5, MCH 25.6 L, MCHC 30.3 L, RDW 16.9, Plt Count 276, MPV 7.2 L, Neut % (Auto) 78.5, Lymph % (Auto) 14.2, [place] % (Auto) 6.4, Eos % (Auto) 0.6, Baso % (Auto) 0.3, Neut # (Auto) 9.0 H, Lymph # (Auto) 1.6, [place] # (Auto) 0.7, Eos # (Auto) 0.1, Baso # (Auto) 0.0 10/29/18 18:55: Sodium 140, Potassium 4.0, Chloride 103, Carbon Dioxide 34 H, Anion Gap 7.0, BUN 15, Creatinine 0.89, Estimated Creat Clear 56, Estimated GFR 62, Est GFR ( Amer) 75, Glucose 137 H, Calcium 9.1, Total Bilirubin 0.3, AST 14 L, ALT 27, Alkaline Phosphatase 103, Troponin I < 0.02, Total Protein 6.3 L, Albumin 2.8 L, Globulin 3.5 H, Albumin/Globulin Ratio 0.8 L 10/29/18 18:55: Lactate 0.8 <Nuvia Lara - 10/30/18 11:02> Temp Pulse Resp BP Pulse Ox 98.2 F 91 H 22 129/73 95 10/30/18 08:00 10/30/18 08:00 10/30/18 08:00 10/30/18 08:00 10/30/18 08:00 Laboratory Results - last 24 hr 10/29/18 18:55: WBC 11.5 H, RBC 3.84 L, Hgb 9.8 L, Hct 32.4 L, MCV 84.5, MCH 25.6 L, MCHC 30.3 L, RDW 16.9, Plt Count 276, MPV 7.2 L, Neut % (Auto) 78.5, Lymph % (Auto) 14.2, [place] % (Auto) 6.4, Eos % (Auto) 0.6, Baso % (Auto) 0.3, Neut # (Auto) 9.0 H, Lymph # (Auto) 1.6, [place] # (Auto) 0.7, Eos # (Auto) 0.1, Baso # (Auto) 0.0 10/29/18 18:55: Sodium 140, Potassium 4.0, Chloride 103, Carbon Dioxide 34 H, Anion Gap 7.0, BUN 15, Creatinine 0.89, Estimated Creat Clear 56, Estimated GFR 62, Est GFR ( Amer) 75, Glucose 137 H, Calcium 9.1, Total Bilirubin 0.3, AST 14 L, ALT 27, Alkaline Phosphatase 103, Troponin I < 0.02, Total Protein 6.3 L, Albumin 2.8 L, Globulin 3.5 H, Albumin/Globulin Ratio 0.8 L 10/29/18 18:55: Lactate 0.8 <Sisi Dobson - 10/30/18 08:55> I & O for Last 24 hours: Intake & Output 10/27/18 10/28/18 10/29/18 10/30/18 11:59 11:59 11:59 11:59 Intake Total 600 / 600 Output Total 600 / 600 Balance 0 / 0 Weight 160 lb 4 oz <Nuvia Lara - 10/30/18 11:02> Intake & Output 10/27/18 10/28/18 10/29/18 10/30/18 11:59 11:59 11:59 11:59 Intake Total 600 / 600 Output Total 600 / 600 Balance 0 / 0 Weight 160 lb 4 oz <Sisi Dobson - 10/30/18 08:55> Microbiology Reports for the Last 24 Hours: Microbiology 10/29/18 Unknown Sputum - Expectorated Sputum Gram Stain - Final 10/29/18 Unknown Sputum - Expectorated Sputum Sputum Culture - Preliminary <Nuvia Lara - 10/30/18 11:02> Microbiology 10/29/18 Unknown Sputum - Expectorated Sputum Gram Stain - Final 10/29/18 Unknown Sputum - Expectorated Sputum Sputum Culture - Preliminary <Sisi Dobson 10/30/18 08:55> - Constitutional no acute distress <Sisi Dobson 10/30/18 09:16> - *Routine HEENT Exam Head: Present: normocephalic <Sisi Dobson 10/30/18 09:16> Eye: Present: EOMI, PERRL <Sisi Dobson 10/30/18 09:16> ENT: Present: mucous membranes dry <Sisi Dobson 10/30/18 09:16> - *Routine Neck Exam Present: supple. Absent: lymphadenopathy <Sisi Dobson 10/30/18 09:16> - *Routine Respiratory Exam Present: wheezes, diminished air movement. Absent: rales <Sisi Dobson 10/30/18 09:16> - *Routine Cardiovascular Exam Present: RRR <[facility] 10/30/18 09:16> - *Routine Abdominal Exam Present: soft, normoactive bowel sounds, tenderness (bilateral lower quadrants) <Sisi Dobson 10/30/18 09:16> - *Routine Extremities Exam Present: edema (LLE). Absent: cyanosis, clubbing <Sisi Dobson 10/30/18 09:16> - *Routine Skin Exam Comments: LLE with a large hematoma just below the knee and significant ecchymosis of the entire lower leg, there is minimal ecchymosis of the right knee and just below the knee, both legs are ttp from the knee to the ankle <Sisi Dobson - 10/30/18 09:16> - *Routine Neurological Exam Present: alert, oriented X3 <Sisi Dobson 10/30/18 09:16> H&P: Result - Impressions CXR - COPD with left basilar airspace disease <Sisi Dobson 10/30/18 09:16> Assessment and Plan (1) COPD exacerbation Current visit: Yes Status: Acute Category: Medical Code(s): J44.1 - Chronic obstructive pulmonary disease with (acute) exacerbation (2) Hypertension Current visit: Yes Status: Chronic Category: Medical Code(s): I10 - Essential (primary) hypertension (3) Hyperlipidemia Current visit: Yes Status: Chronic Category: Medical Code(s): E78.5 - Hyperlipidemia, unspecified (4) Type 2 diabetes mellitus Current visit: Yes Status: Chronic Category: Medical Code(s): E11.9 - Type 2 diabetes mellitus without complications (5) Paroxysmal A-fib Current visit: Yes Status: Chronic Category: Medical Code(s): I48.0 - Paroxysmal atrial fibrillation <Sisi Dobson 10/30/18 09:04> (1) COPD exacerbation Current visit: Yes Status: Acute Category: Medical Code(s): J44.1 - Chronic obstructive pulmonary disease with (acute) exacerbation (2) Hypertension Current visit: Yes Status: Chronic Category: Medical Code(s): I10 - Essential (primary) hypertension (3) Hyperlipidemia Current visit: Yes Status: Chronic Category: Medical Code(s): E78.5 - Hyperlipidemia, unspecified (4) Type 2 diabetes mellitus Current visit: Yes Status: Chronic Category: Medical Code(s): E11.9 - Type 2 diabetes mellitus without complications (5) Paroxysmal A-fib Current visit: Yes Status: Chronic Category: Medical Code(s): I48.0 - Paroxysmal atrial fibrillation <Nuvia Lara - 10/30/18 11:02> - Assessment and plan all Dx Assessment and Plan for all problems:: Wet reading of Xray showed no acute fracture. She does have bruising secondary to her recent fall. Continue abx, nebs, steroids and oxygen (2L, which is her home oxygen). <LaraNuvia 10/30/18 11:02> Patient has been started on levaquin, nebs, and steroids. Will get x-rays of both of her legs d/t her fall. <Sisi Dobson - 10/30/18 09:16>
--- NOTE | 2018-10-30 13:15 | Electrocardiograph Report ---
APPROVED REPORT Exam: Resting ECG HR:82 bpm ECG Measurements Heart Rate 82 AXES NM 176 P 56 QRSd 76 QRS -39 QT 362 T44 QTc 422 <Conclusion> Normal sinus rhythm Left axis deviation Low voltage QRS Incomplete RBBB Abnormal ECG Electronically signed by : Henry Jamison, 10/30/2018 13:15:11
--- NOTE | 2018-10-30 13:19 | Discharge Summary ---
General - General Admission date:: 10/29/18 Discharge date: 10/30/18 HPI HPI: Ms. Pop is a 73-year-old female who is a patient of Dr. Rg. She was visiting here from [facility], where she lives. She has numerous medical conditions and has been hospitalized many times at various hospitals in [place] as well as [place]. She has severe COPD and is oxygen and steroid-dependent. She states she was recently hospitalized due to difficulty breathing and was placed on Levaquin. She states she was sent home on oral Levaquin and took this for 10 days and was feeling much better. She ran out of the Levaquin 2 days ago and began feeling short of breath and coughing again. She states she took a breathing treatment and went shopping, which made her more short of breath. She got back into her car after shopping and turned on the air conditioner and took another nebulizer treatment. She states she checked her oxygen and it was down to 71. She states she could not get her oxygen level to increase, and therefore presented to the emergency room. She was admitted for a COPD exacerbation. The patient states she feels a little bit better this morning after being started on Levaquin, steroids, and nebs. She is requesting her home medications. She also says she has multiple medication allergies but does not have a list with her at this time. Of note, she also fell a few days ago in her home injuring her bilateral lower legs. She has not had x-rays. Hospital Course Hospital Course: The patient was admitted and started on IV Levaquin, nebs, and steroids. She did have x-rays of her bilateral lower extremities and they showed some soft tissue swelling on the left but no acute fracture. The patient's shortness of breath did improve and she wanted to be discharged home. She was stable to be discharged on a Medrol Dosepak and oral Levaquin. She will follow-up with her primary care physician. Objective Vital signs: Temp Pulse Resp BP Pulse Ox 98.3 F 88 22 144/78 H 96 10/30/18 12:00 10/30/18 12:00 10/30/18 12:00 10/30/18 12:00 10/30/18 12:00 Narrative: - Constitutional no acute distress - *Routine HEENT Exam Head: Present: normocephalic Eye: Present: EOMI, PERRL ENT: Present: mucous membranes dry - *Routine Neck Exam Present: supple. Absent: lymphadenopathy - *Routine Respiratory Exam Present: wheezes, diminished air movement. Absent: rales - *Routine Cardiovascular Exam Present: RRR - *Routine Abdominal Exam Present: soft, normoactive bowel sounds, tenderness (bilateral lower quadrants) - *Routine Extremities Exam Present: edema (LLE). Absent: cyanosis, clubbing - *Routine Skin Exam Comments: LLE with a large hematoma just below the knee and significant ecchymosis of the entire lower leg, there is minimal ecchymosis of the right knee and just below the knee, both legs are ttp from the knee to the ankle - *Routine Neurological Exam Present: alert, oriented X3 Results Labs on day of discharge: Labs from last 24 hours 10/29/18 10/29/18 10/29/18 18:55 18:55 18:55 WBC 11.5 H RBC 3.84 L Hgb 9.8 L Hct 32.4 L MCV 84.5 MCH 25.6 L MCHC 30.3 L RDW 16.9 Plt Count 276 MPV 7.2 L Neut % (Auto) 78.5 Lymph % (Auto) 14.2 [place] % (Auto) 6.4 Eos % (Auto) 0.6 Baso % (Auto) 0.3 Neut # (Auto) 9.0 H Lymph # (Auto) 1.6 [place] # (Auto) 0.7 Eos # (Auto) 0.1 Baso # (Auto) 0.0 Sodium 140 Potassium 4.0 Chloride 103 Carbon Dioxide 34 H Anion Gap 7.0 BUN 15 Creatinine 0.89 Estimated Creat Clear 56 Estimated GFR 62 Est GFR ( Amer) 75 Glucose 137 H Lactate 0.8 Calcium 9.1 Total Bilirubin 0.3 AST 14 L ALT 27 Alkaline Phosphatase 103 Troponin I < 0.02 Total Protein 6.3 L Albumin 2.8 L Globulin 3.5 H Albumin/Globulin Ratio 0.8 L Preliminary micro results at discharge 10/29/18 Unknown Sputum Culture - Preliminary Sputum - Expectorated Sputum DS: Diagnosis - Discharge Diagnosis (1) COPD exacerbation Status: Acute (2) Hypertension Status: Chronic (3) Hyperlipidemia Status: Chronic (4) Type 2 diabetes mellitus Status: Chronic (5) Paroxysmal A-fib Status: Chronic Discharge Plan - Patient Discharge Instructions ACTIVITY: Ambulate as tolerated, Limited activity, No heavy lifting DIET: continue same diet Patient Instructions: Chronic Obstructive Pulmonary Disease, DI for Chronic Obstructive Pulmonary Disease, DI for Diabetes Type 2, How to Prevent Falls - Follow up Plan Unknown provider or service follow up:: 10/30/18 12:13 her PCP in 1-2 days Disposition: Home, Self-Fpc Medications: Home Medications Medication Instructions Recorded Confirmed Type Apixaban [Eliquis 5mg tab] 2.5 mg PO BID 06/09/17 10/29/18 History Calcitonin,Palms,Synthetic 3.7 ml NS HS 06/09/17 10/29/18 History [Miacalcin] Calcium Citrate/Vitamin D2 1 each PO BID 06/09/17 10/29/18 History [Alfie-Citrate Plus Vitamin D Tab] Docusate Sodium 100 mg PO BID 06/09/17 10/29/18 History Flecainide Acetate 100 mg PO BID 06/09/17 10/30/18 History Fluticasone Propionate [Flonase 1 spray NS DAILY 06/09/17 10/29/18 History Allergy Relief NS] Furosemide [Lasix 20mg tablet] 20 mg PO DAILY 06/09/17 10/29/18 History Loratadine [Claritin] 10 mg PO DAILY 06/09/17 10/29/18 History Melatonin 5 mg PO HS 06/09/17 10/29/18 History Tizanidine HCl [Zanaflex 4mg 4 mg PO Q8HP PRN 06/09/17 10/29/18 History tab] dilTIAZem HCl [Cartia Xt] 300 mg PO DAILY 06/09/17 10/29/18 History guaiFENesin [Mucinex 600mg tablet] 1,200 mg PO Q12 PRN 06/09/17 10/29/18 History raNITIdine HCl [Ranitidine HCl] 150 mg PO BID 06/09/17 10/30/18 History Albuterol Sulfate [Albuterol 1.25 mg IH Q6H 10/30/18 10/30/18 History 0.042% 1.25mg/3mL neb] Insulin Glargine,Hum.rec.anlog 10 units SQ HS 10/30/18 10/30/18 History [Insulin Glargine 100 Units/mL 3mL flexpen] Insulin Lispro [Humalog Kwikpen 0 unit SQ PC 10/30/18 10/30/18 History U-100] Ipratropium/Albuterol Sulfate 1 neb IH Q6H 10/30/18 10/30/18 History [Iprat-Albut 0.5-3(2.5) mg/3 ml] levoFLOXacin [Levaquin 500mg 500 mg PO DAILY #7 tab 10/30/18 Rx tab] methylPREDNISolone [Medrol 4mg 4 mg PO DIRECTED #21 tab 10/30/18 Rx tab] Prescriptions/Medication Reconciliation: New methylPREDNISolone [Medrol 4mg tab] 4 mg PO DIRECTED #21 tab levoFLOXacin [Levaquin 500mg tab] 500 mg PO DAILY #7 tab Continued Apixaban [Eliquis 5mg tab] 2.5 mg PO BID Fluticasone Propionate [Flonase Allergy Relief NS] 1 spray NS DAILY Docusate Sodium 100 mg PO BID Loratadine [Claritin] 10 mg PO DAILY Tizanidine HCl [Zanaflex 4mg tab] 4 mg PO Q8HP PRN PRN Reason: Muscle Pain Flecainide Acetate 100 mg PO BID dilTIAZem HCl [Cartia Xt] 300 mg PO DAILY Calcium Citrate/Vitamin D2 [Alfie-Citrate Plus Vitamin D Tab] 1 each PO BID Calcitonin,Palms,Synthetic [Miacalcin] 3.7 ml NS HS Melatonin 5 mg PO HS guaiFENesin [Mucinex 600mg tablet] 1,200 mg PO Q12 PRN PRN Reason: Congestion Ipratropium/Albuterol Sulfate [Iprat-Albut 0.5-3(2.5) mg/3 ml] 1 neb IH Q6H Albuterol Sulfate [Albuterol 0.042% 1.25mg/3mL neb] 1.25 mg IH Q6H Insulin Lispro [Humalog Kwikpen U-100] 0 unit SQ PC Furosemide [Lasix 20mg tablet] 20 mg PO DAILY raNITIdine HCl [Ranitidine HCl] 150 mg PO BID Insulin Glargine,Hum.rec.anlog [Insulin Glargine 100 Units/mL 3mL flexpen] 10 units SQ HS Discontinued predniSONE [Prednisone 10mg Tab Dose-Pack] 10 mg PO DAILY #30 pack - Problem Reconciliation Problems Reviewed?: Yes
== END 2018-10-30 20:55 | disposition home or self-care (01) ==
LOC: ER 17:33 → 2ND 17:33
PROVIDERS: ADMIT Emergency Medicine; ATTEND Emergency Medicine
CPT/HCPCS: 71010; 71045; 73562; 73590; 80053; 82962; 83605; 84484; 85025; 87040; 87070; 87205; 93005; 94640; 94761; 96374; 99284; G0378; J1956